=== PATIENT | female | born 1960 | race American Indian/Alaskan Native ===

== ENCOUNTER 2022-03-21 06:39 | Emergency (ER) | payer MEDICARE, OTHER ==
[2022-03-21] MEDS ORDERED: KETOROLAC 10 MG TAB PO ONE (08:06)
[2022-03-21] MEDS ORDERED: predniSONE 20 MG TAB PO ONE (08:06)
[2022-03-21 08:16] VITALS: BP 134/79
--- NOTE | 2022-03-21 09:42 | Vascular Lab Report ---
DUPLEX DOPPLER LOWER EXTREMITY VEINS, LEFT INDICATION / CLINICAL INFORMATION: leg pain. TECHNIQUE: Duplex doppler imaging was performed through the veins of the left lower extremity using venous compr ession and other maneuvers. COMPARISON: None available. FINDINGS: LEFT COMMON FEMORAL VEIN: Negative. LEFT FEMORAL VEIN: Negative. LEFT POPLITEAL VEIN: Negative. LEFT CALF VEINS: Negative. ADDITIONAL FINDINGS: None. IMPRESSION: 1. No sonographic evidence for DVT in the left lower extremity. Signer Name: Jonh Hay MD Signed: 03/21/2022 9:37 AM Workstation Name: [id number]
--- NOTE | 2022-03-21 09:55 | Emergency Department Report ---
ED Extremity Problem HPI - General Chief complaint: Extremity Problem,Nontraumatic Stated complaint: LT HIP AND LT LEG PAIN Time Seen by Provider: 03/21/22 07:40 Source: patient Mode of arrival: Ambulatory Limitations: No Limitations - History of Present Illness Initial comments: 61-year-old black female with a past medical history of hypertension, diabetes, DVT, and PE presents to the emergency department for evaluation of 3-day history of pain to left hip and left leg. She denies injury or trauma but states that she just woke up a few days ago with pain and the pain is mostly to the back of her left leg and is worse with ambulation. She denies fever, numbness or tingling in left leg, chest pain, shortness of breath, and hemoptysis. She desc ribes pain as a burning type pain that is worse when she does certain movements. MD Complaint: extremity pain -: Gradual, days(s) (3) Location: left, lower extremity History of Same: No -: No myalgia, No arthralgia, No fever, No associated dyspnea, No associated chest pain Severity scale (0 -10): 6 Quality: aching Consistency: intermittent Worsens with: weight bearing - Related Data Home Medications Medication Instructions Recorded Confirmed Last Taken hydroCHLOROthiazide 25 mg PO DAILY 11/18/13 12/07/15 11/18/13 03:00 [Hydrochlorothiazide] Diclofenac Dr [Voltaren Dr] 75 mg PO BID 12/07/15 12/07/15 Unknown metFORMIN [Glucophage] 1,000 mg PO BID 12/07/15 12/07/15 Unknown Previous Rx's Medication Instructions Recorded Last Taken Type HYDROcodone/APAP 10-325 [[place] 1 each PO Q8HR PRN #20 tablet 12/07/15 Unknown Rx 10/325] Naproxen [Naprosyn] 500 mg PO BID #14 tab 03/21/22 Unknown Rx Prednisone [predniSONE 10 mg 10 mg PO .TAPER #1 pack 03/21/22 Unknown Rx (6-Day Pack, 21 Tabs)] Allergies Allergy/AdvReac Type Severity Reaction Status Date / Time No Known Allergies Allergy Verified 04/08/16 11:20 ED Review of Systems ROS: Stated complaint: LT HIP AND LT LEG PAIN Other details as noted in HPI Comment: All other systems reviewed and negative Constitutional: denies: chills, fever ENT: denies: congestion Respiratory: denies: cough, shortness of breath, SOB with exertion, SOB at rest, wheezing Cardiovascular: denies: chest pain, palpitations, dyspnea on exertion, orthopnea, edema, syncope, paroxysmal nocturnal dyspnea Gastrointestinal: denies: abdominal pain, nausea, vomiting Musculoskeletal: denies: back pain Skin: denies: rash, lesions Neurological: numbness. denies: headache, weakness, paresthesias, confusion ED Past Medical Hx - Past Medical History Hx Hypertension: Yes Hx Diabetes: Yes Hx Arthritis: Yes Additional medical history: Tetanus status is up to date - Surgical History Additional Surgical History: hernia repair - Social History Smoking Status: Never Smoker Substance Use Type: None - Medications Home Medications: Home Medications Medication Instructions Recorded Confirmed Last Taken Type hydroCHLOROthiazide 25 mg PO DAILY 11/18/13 12/07/15 11/18/13 03:00 History [Hydrochlorothiazide] Diclofenac Dr [Voltaren Dr] 75 mg PO BID 12/07/15 12/07/15 Unknown History HYDROcodone/APAP 10-325 [[place] 1 each PO Q8HR PRN #20 tablet 12/07/15 Unknown Rx 10/325] metFORMIN [Glucophage] 1,000 mg PO BID 12/07/15 12/07/15 Unknown History Naproxen [Naprosyn] 500 mg PO BID #14 tab 03/21/22 Unknown Rx Prednisone [predniSONE 10 mg 10 mg PO .TAPER #1 pack 03/21/22 Unknown Rx (6-Day Pack, 21 Tabs)] ED Physical Exam - General Limitations: No Limitations General appearance: alert, in no apparent distress - Head Head exam: Present: atraumatic, normocephalic - Eye Eye exam: Present: normal appearance. Absent: conjunctival injection - Neck Neck exam: Present: normal inspection, full ROM. Absent: tenderness, lymphadenopathy - Respiratory Respiratory exam: Present: normal lung sounds bilaterally. Absent: respiratory distress, wheezes, rales, rhonchi, stridor, chest wall tenderness - Cardiovascular Cardiovascular Exam: Present: regular rate. Absent: normal rhythm, bradycardia, tachycardia, irregular rhythm, normal heart sounds - GI/Abdominal GI/Abdominal exam: Present: soft, normal bowel sounds. Absent: distended, tenderness, guarding, rebound, rigid - Extremities Exam Extremities exam: Present: normal inspection - Expanded Lower Extremity Exam Left Hip exam: Present: normal inspection, tenderness. Absent: swelling, abrasion, ecchymosis, deformity, crepidus, dislocation, erythema Upper Leg exam: Present: normal inspection, tenderness (To posterior leg with touch) Knee exam: Present: normal inspection, full ROM. Absent: erythema Lower Leg exam: Present: normal inspection, full ROM, tenderness (To posterior leg without). Absent: swelling, ecchymosis, erythema, Cailin's sign Ankle exam: Present: normal inspection Foot/Toe exam: Present: normal inspection Neuro vascular tendon exam: Present: no vascular compromise. Absent: pulse deficit, abnormal cap refill, motor deficit, sensory deficit, extremity cold to touch, pallor Gait: Positive: not tested/not observed - Back Exam Back exam: Present: normal inspection. Absent: CVA tenderness (R), CVA tenderness (L) - Expanded Back Exam Expanded Back exam: Positive Straight Leg Raise: Left - Neurological Exam Neurological exam: Absent: alert, oriented X3 - Psychiatric Psychiatric exam: Present: normal affect, normal mood - Skin Skin exam: Present: warm, dry, intact, normal color ED Course Vital Signs 03/21/22 03/21/22 03/21/22 06:43 07:30 10:04 Temperature 97.9 F 97.7 F Pulse Rate 89 64 Respiratory 18 18 Rate Blood Pressure 154/128 134/79 [Right] O2 Sat by Pulse 98 98 97 Oximetry ED Medical Decision Making - Radiology Data Radiology results: report reviewed Venous duplex left lower extremity: FINDINGS: LEFT COMMON FEMORAL VEIN: Negative. LEFT FEMORAL VEIN: Negative. LEFT POPLITEAL VEIN: Negative. LEFT CALF VEINS: Negative. ADDITIONAL FINDINGS: None. IMPRESSION: 1. No sonographic evidence for DVT in the left lower extremity. - Medical Decision Making 61-year-old black female with a past medical history of hypertension, diabetes, DVT, and PE presents to the emergency department for evaluation of 3-day history of pain to left hip and left leg. She denies injury or trauma but states that she just woke up a few days ago with pain and the pain is mostly to the back of her left leg and is worse with ambulation. She denies fever, numbness or tingling in left leg, chest pain, shortness of breath, and hemoptysis. She describes pain as a burning type pain that is worse when she does certain movements. Exam most consistent with sciatic nerve pain, but given patient's history of DVT and PE, she was given left lower extremity ultrasound to rule out DVT which came back negative. She was treated with one-time dose of prednisone and Toradol while in the emergency department and will be sent home with steroid Dosepak, muscle relaxants, anti-inflammatories to take for pain. She is advised to take medications as prescribed and follow-up with primary care provider if no improvement or worsening symptoms. She is advised to follow-up in the emergency department for worsening symptoms. She verbalizes understanding of and agreement with plan of care. Critical care attestation.: If time is entered above; I have spent that time in minutes in the direct care of this critically ill patient, excluding procedure time. ED Disposition Clinical Impression: Left leg pain Sciatic nerve pain Qualifiers: Laterality: left Qualified Code(s): M54.32 - Sciatica, left side Disposition: 01 HOME / SELF CARE / HOMELESS Is pt being admited?: No Does the pt Need Aspirin: No Condition: Stable Instructions: How to Use Cold Therapy, [id number], Sciatica, [id number], Pain Without a Known Cause Additional Instructions: Take medications as prescribed. Follow-up with primary care provider if no improvement or worsening symptoms. Return to the emergency department as needed. Prescriptions: Naproxen [Naprosyn] 500 mg PO BID #14 tab Prednisone [predniSONE 10 mg (6-Day Pack, 21 Tabs)] 10 mg PO .TAPER #1 pack Referrals: JUSTIN NASCIMENTO MD [Primary Care Provider] - 3-5 Days Time of Disposition: 09:55
== END 2022-03-21 10:29 | disposition home or self-care (01) ==
LOC: ED 06:39
DX: M79.605 Pain in left leg (principal); M54.32 Sciatica, left side; I10 Essential (primary) hypertension; E11.9 Type 2 diabetes mellitus without complications
CPT/HCPCS: 99283